=== PATIENT | female | born 1980 | race Caucasian/White ===

== ENCOUNTER → 2019-11-05 16:30 | Outpatient (BNVA) | payer OTHER, SELFPAY | PROVIDERS: Family Provider Nurse Practitioner Family; PCP Nurse Practitioner Family; Visit Provider Nurse Practitioner Family | DX: I10 Essential (primary) hypertension (principal); E55.9 Vitamin D deficiency, unspecified; E53.8 Deficiency of other specified B group vitamins; M25.50 Pain in unspecified joint; E66.9 Obesity, unspecified; R53.83 Other fatigue; Z71.3 Dietary counseling and surveillance; Z68.32 Body mass index [BMI] 32.0-32.9, adult | CPT/HCPCS: 80053; 80061; 82306; 82607; 84443; 85025; 85651; 86140; 86431 ==

== ENCOUNTER → 2019-12-04 11:51 | Outpatient (BNVA) | payer OTHER, SELFPAY | PROVIDERS: Family Provider Nurse Practitioner Family; PCP Nurse Practitioner Family; Visit Provider Nurse Practitioner Family | DX: E66.9 Obesity, unspecified (principal); E66.09 Other obesity due to excess calories; Z68.31 Body mass index [BMI] 31.0-31.9, adult; Z71.3 Dietary counseling and surveillance; G47.00 Insomnia, unspecified; R73.09 Other abnormal glucose | CPT/HCPCS: 80053; 83036 ==

== ENCOUNTER → 2020-03-13 11:41 | Outpatient (BNVA) | payer OTHER, SELFPAY | PROVIDERS: Family Provider Nurse Practitioner Family; PCP Nurse Practitioner Family; Visit Provider Nurse Practitioner Family | DX: E66.9 Obesity, unspecified (principal); I10 Essential (primary) hypertension; Z71.3 Dietary counseling and surveillance; Z68.28 Body mass index [BMI] 28.0-28.9, adult | CPT/HCPCS: 80053 ==

== ENCOUNTER → 2020-10-16 11:56 | Outpatient (BNVA) | payer OTHER, SELFPAY | PROVIDERS: Family Provider Nurse Practitioner Family; PCP Nurse Practitioner Family; Visit Provider Nurse Practitioner Family | DX: R60.9 Edema, unspecified (principal); E66.9 Obesity, unspecified; I10 Essential (primary) hypertension | CPT/HCPCS: 80053; 83880; 85025 ==

== ENCOUNTER → 2020-12-22 15:13 | Outpatient (BNVA) | payer OTHER, SELFPAY | PROVIDERS: Family Provider Nurse Practitioner Family; PCP Nurse Practitioner Family; Visit Provider Nurse Practitioner Family | DX: R60.9 Edema, unspecified (principal) | CPT/HCPCS: 80048 ==

== ENCOUNTER → 2021-01-12 16:21 | Outpatient (BNVA) | payer OTHER, SELFPAY | PROVIDERS: Family Provider Nurse Practitioner Family; PCP Nurse Practitioner Family; Visit Provider Nurse Practitioner Family | DX: M25.511 Pain in right shoulder (principal); G43.009 Migraine without aura, not intractable, without status migrainosus | CPT/HCPCS: 73030 ==

== ENCOUNTER → 2021-08-10 16:24 | Outpatient (BNVA) | payer OTHER, SELFPAY | PROVIDERS: Family Provider Nurse Practitioner Family; PCP Nurse Practitioner Family; Visit Provider Nurse Practitioner Family | DX: I10 Essential (primary) hypertension (principal); E55.9 Vitamin D deficiency, unspecified; E53.8 Deficiency of other specified B group vitamins | CPT/HCPCS: 80053; 80061; 82306; 82607; 83036; 83735; 84443; 85025 ==

== ENCOUNTER → 2022-02-21 14:53 | Outpatient (BNVA) | payer OTHER, SELFPAY | PROVIDERS: Family Provider Nurse Practitioner Family; PCP Nurse Practitioner Family; Visit Provider Nurse Practitioner Family | DX: Z20.822 Contact with and (suspected) exposure to COVID-19 (principal); J02.9 Acute pharyngitis, unspecified; J32.9 Chronic sinusitis, unspecified | CPT/HCPCS: 87071; 87635; 87880 ==

== ENCOUNTER → 2022-03-16 16:45 | Outpatient (BNVA) | payer OTHER, SELFPAY | PROVIDERS: Family Provider Nurse Practitioner Family; PCP Nurse Practitioner Family; Visit Provider Nurse Practitioner Family | DX: G43.009 Migraine without aura, not intractable, without status migrainosus (principal); E53.8 Deficiency of other specified B group vitamins; E55.9 Vitamin D deficiency, unspecified; R73.9 Hyperglycemia, unspecified; I10 Essential (primary) hypertension; J02.9 Acute pharyngitis, unspecified | CPT/HCPCS: 80053; 80061; 82306; 82607; 83036; 83735; 84443; 85025; 87070 ==

== ENCOUNTER → 2022-05-02 15:36 | Outpatient (BNVA) | payer OTHER, SELFPAY | PROVIDERS: Family Provider Nurse Practitioner Family; PCP Nurse Practitioner Family; Visit Provider Nurse Practitioner Family | DX: R05.9 Cough, unspecified (principal); R30.0 Dysuria; R53.83 Other fatigue | CPT/HCPCS: 81000; 87400; 87426 ==

== ENCOUNTER → 2022-08-24 17:05 | Outpatient (BNVA) | payer OTHER, SELFPAY | PROVIDERS: Family Provider Nurse Practitioner Family; PCP Nurse Practitioner Family; Visit Provider Nurse Practitioner Family | DX: I10 Essential (primary) hypertension (principal); E55.9 Vitamin D deficiency, unspecified; E53.8 Deficiency of other specified B group vitamins; R73.9 Hyperglycemia, unspecified | CPT/HCPCS: 80053; 80061; 81000; 82306; 82607; 83036; 84443; 85025 ==

== ENCOUNTER → 2023-02-28 17:01 | Outpatient (BNVA) | payer OTHER, SELFPAY | PROVIDERS: PCP Nurse Practitioner Family; Visit Provider Nurse Practitioner Family | DX: G43.009 Migraine without aura, not intractable, without status migrainosus (principal); E53.8 Deficiency of other specified B group vitamins; I10 Essential (primary) hypertension; R73.9 Hyperglycemia, unspecified; E55.9 Vitamin D deficiency, unspecified | CPT/HCPCS: 80053; 80061; 82306; 82607; 83036; 84443; 85025 ==

== ENCOUNTER → 2023-08-25 16:37 | Outpatient (BNVA) | payer OTHER, SELFPAY | PROVIDERS: PCP Nurse Practitioner Family; Visit Provider Nurse Practitioner Family | DX: M25.552 Pain in left hip (principal) | CPT/HCPCS: 73502 ==

== ENCOUNTER → 2023-09-22 11:31 | Outpatient (BNVA) | payer OTHER, SELFPAY | PROVIDERS: PCP Nurse Practitioner Family; Visit Provider Nurse Practitioner Family | DX: I10 Essential (primary) hypertension (principal); E53.8 Deficiency of other specified B group vitamins; E55.9 Vitamin D deficiency, unspecified; R73.9 Hyperglycemia, unspecified | CPT/HCPCS: 80053; 80061; 82306; 82607; 83036; 84443; 85025 ==

== ENCOUNTER 2023-11-14 07:29 | Outpatient (CLI) | payer OTHER, SELFPAY ==
[2022-10-12 13:38] VITALS: BMI 23.6
[2022-10-13] VITALS (12 sets, daily range): BP systolic 98–115; BP diastolic 54–82; PULSE 54–97; RESP 10–18; TEMP 36.4–36.8; O2SAT 98–100
[2022-10-13] MEDS: sodium chloride 0.9% 1,000 ML 30 ML IV (08:05)
--- NOTE | 2022-10-13 08:09 | W.PM.OPSUD ---
Surgery/Procedure H&P Update DATE OF PROCEDURE: October 13, 2022 DATE H&P PERFORMED: 09/27/22 H&P UPDATE INFORMATION: I have reviewed H&P completed within last 30 days, I have examined patient prior to procedure and No changes to prior documentation PLANNED PROCEDURE: Operation Date: 10/13/22 09:05 Proposed Procedures p lap brooke [id number], K80.20(Not Applicable) - Florian Leon DO
[2022-10-13] MEDS: scopolamine 1.5 Patch 1 PATCH TRANSDERMA (08:11)
[2022-10-13] MEDS: vancomycin 1,500 MG/300 ML PIGGYBACK 200 MG IV (08:12)
[2022-10-13] MEDS: lidocaine-epi 2% 20 mL INJ INJECTION (08:46)
--- NOTE | 2022-10-13 09:13 | P.OP_ITS ---
Operative Report Date of procedure: October 13, 2022 Pre-op diagnosis: Symptomatic cholelithiasis Post-op diagnosis: same Procedure done: Laparoscopic cholecystectomy Specimens removed/disposition: Gallbladder Surgeon: Dr. Florian Leon DO Anesthesia: General Estimated blood loss (mL): 5 Complications: None apparent Brief History: This very pleasant 42-year-old female who was diagnosed with symptomatic cholelithiasis. Laparoscopic cholecystectomy was indicated. The risk and benefits were explained and documented. Procedure: Patient was wheeled into the operative room and placed on the OR table in a supine position. Abdomen was inspected prepped and draped in usual sterile fashion. Time-out was performed and all present were in agreement. A 15 blade scalp was used to make a stab incision in the left upper quadrant and intra- abdominal insufflation was achieved using a Veress needle. After localizing the tissue incisions were made and a 5 millimeter trocar was placed into the umbilicus as well as 2 in the right upper quadrant. A 12 millimeter trocar was placed in the epigastrium. Gallbladder was grasped and elevated. The triangle of Calot was carefully dissected using blunt dissection and electrocautery until the triangle of Calot clearly identified. The cystic duct was clipped proximally and double clipped distally. The duct was then ligated proximally. The cystic artery was doubly clipped and ligated. The gallbladder was then removed from the liver bed using electrocautery. The gallbladder was removed from the abdomen using an Endo-Catch bag through the epigastric incision. The liver bed was inspected and no bleeding was seen. The abdomen was irrigated and suctioned. All ports removed. Skin was washed and dried. Incisions were closed with 3-0 and 4-O Vicryl in a subcuticular interrupted fashion. Skin glue was applied. Patient tolerated the procedure well.
[2022-10-13] MEDS: fentaNYL 50 mcg/mL INJ 2mL IVP (09:18)
[2022-10-13] MEDS: diphenhydrAMINE 50 mg/mL SDV 1mL 12.5 MG IVP (09:40)
--- NOTE | 2022-10-13 09:40 | PC.NURSE ---
Okay to give 12.5mg Benadryl for itching per Dr Posey. Administered medication, will continue to monitor.
[2022-10-13] MEDS: HYDROcodone-acetaminophen 5-325 mg Tablet 1 TAB PO (10:11)
--- NOTE | 2022-10-13 10:19 | P.ANESASSM_ITS ---
Pre-Anesthetic Assessment Height/Weight: Height 1.65 m Weight 64.41 kg Temp Pulse Resp BP Pulse Ox O2 Del Method O2 Flow Rate 97.9 F 54 L 16 115/54 100 Room Air 6 10/13/22 09:50 10/13/22 09:50 10/13/22 09:50 10/13/22 09:50 10/13/22 09:50 10/13/22 09:50 10/13/22 09:14 Operation Date: 10/13/22 09:05 Proposed Procedures p lap brooke [id number], K80.20(Not Applicable) - DO Paola Campos anesthetic complications: none Was Beta Marci taken within 24 hours: N/A Was Clonidine taken within 24 hours: N/A Last intake: Intake Last Liquid Date 10/12/22 Last Liquid Time 20:00 Last Solid Date 10/11/22 Last Solid Time 19:00 Social No alcohol and No tobacco Exam alert, oriented x 3, clear to auscultation bilaterally and regular rate & rhythm Airway Submandibular: within normal limits Cervical ROM: within normal limits Mallampati: Class II Dentition: full CV/HEM Hypertension Neuropsych Anxiety, Depression and Headache Anesthetic Plan ASA status: 2 Anesthesia: General Medications/Allergies Home Medications Medication Instructions Recorded Confirmed Last Taken Type bupropion HCl 300 mg 24 hr tablet, 300 mg PO QAM #90 tabs 03/16/22 10/13/22 10/13/22 Rx extended release ondansetron HCl 4 mg tablet 4 mg PO Q6H PRN nausea and 03/16/22 10/13/22 Unknown Rx vomiting #30 tabs rizatriptan 10 mg tablet See Rx Instructions .Route 03/16/22 10/13/22 Unknown Rx .COMPLEX #10 ea syringe with needle 3 mL 25 gauge #1 ea 09/16/22 09/27/22 Unknown Rx x 1 (BD Luer-Dax Syringe) cyanocobalamin (vitamin B-12) 100 mcg IM .QMONTH 10/13/22 10/13/22 Unknown History 1,000 mcg/mL injection solution docusate sodium 100 mg capsule 100 mg PO BID #14 caps 10/13/22 Unknown Rx (DOK) furosemide 40 mg tablet 40 mg PO DAILY 10/13/22 10/13/22 10/11/22 History hydrocodone 5 mg-acetaminophen 325 1 tab PO Q6H PRN pain #20 tabs 10/13/22 Unknown Rx mg tablet topiramate 25 mg tablet 25 mg PO BID 10/13/22 10/13/22 10/13/22 History trazodone 100 mg tablet 100 mg PO DAILY 10/13/22 10/13/22 10/12/22 History Allergies Allergy/AdvReac Type Severity Reaction Status Date / Time Penicillins Allergy ALGY-Hives Verified 09/27/22 09:16 Sulfa (Sulfonamide Allergy ADR/ALGY-Pa Verified 09/27/22 09:16 Antibiotics) lpitations Current Medications Generic Name Dose Route Start Last Admin Trade Name Freq PRN Reason Stop Dose Admin Diphenhydramine HCl 12.5 mg 10/13/22 07:41 10/13/22 09:40 Diphenhydramine 50 Mg/Ml Sdv 1ml IVP 12.5 mg ONCE PRN Administration PONV Fentanyl 50 mcg 10/13/22 07:41 10/13/22 09:18 Fentanyl 50 Mcg/Ml Inj 2ml IVP 10/14/22 07:41 50 mcg Q5M PRN Administration Pain level 1-5 PACU Phase I Sodium Chloride 1,000 mls @ 30 mls/hr 10/13/22 07:45 10/13/22 08:05 Sodium Chloride 0.9% IV 10/14/22 07:44 30 mls/hr .Q24H JAVIER Administration PFSH Anesthesia Medical History Hypertension Vitamin B 12 deficiency Vitamin D deficiency Surgical History Hx of hysterectomy (~2017) Hx of tubal ligation Family History Father Diabetes Stroke Mother Hypertension Denies family history of Clotting disorder Bleeding disorder Family history of premature coronary artery disease Social History Smoking and tobacco status: former smoker (quit 2 years ago) Quit status (tobacco): has quit using tobacco Year quit tobacco: 2019 Second hand smoke exposure: Yes Alcohol intake: never Substance/Drug Use: never Lives independently: Yes Current occupational status: employed Current occupation: [employer] Current gender identity: Female Data Anesthesia Cardiac Studies: No Data to Display
[2022-10-13] MEDS: ondansetron 2 mg/ML SDV 2 mL 4 MG IVP (10:30)
--- NOTE | 2022-10-13 16:14 | ANE.PACU2 ---
Inpatient post-anesthesia follow up: Airway intact: Yes Vital signs: Temperature 97.9 F Pulse Rate 54 Respiratory Rate 18 Blood Pressure 111/82 Pulse Oximetry 99 Oxygen Delivery Me thod Room Air Oxygen Flow Rate 6 Fraction of Inspir ed Oxygen Hydration adequate: Yes Nausea and vomiting: No Pain level: 2 Mental status: Baseline
[2023-11-14 09:00] LABS: 25 Hydroxy Vitamin D 22 ng/mL (30-100); Alanine Aminotransferase 19 U/L (0-33); Alkaline Phosphatase 50 U/L (35-105); Anion Gap 10.9 (5-19); Aspartate Amino Transferase 12 U/L (0-32); Blood Urea Nitrogen 11 mg/dL (6-20); Carbon Dioxide 24 mmol/L (22-29); Chloride 107 mmol/L (98-107); Chol HDL Ratio 4.07 mg/dL (0.0-4.40); Cholesterol 187 mg/dL (0-200); Globulin 2.6 g/dL (1.3-4.6); Glomerular Filtration Rate 54.5 mL/min (90-130); Glucose 77 mg/dL (65-115); HDL Cholesterol 46 mg/dL (60-100); LDL Cholesterol Calculated 128 mg/dL (50-129); LDL HDL Ratio 2.78 RATIO (0.00-3.22); Osmolality Calculated 284 mOsm/kg (285-295); Potassium 3.9 mmol/L (3.5-5.1); Sodium 138 mmol/L (136-145); Thyroid Stimulating Hormone 1.02 uIU/mL (0.27-4.20); Total Bilirubin 0.4 mg/dL (0.15-1.2); Total Protein 6.6 g/dL (6.6-8.7); Triglycerides 67 mg/dL (0-150); Vitamin B12 510 pg/mL (232-1245)
== END 2023-11-14 07:30 | disposition home or self-care (01) ==
LOC: LAB 07:29
PROVIDERS: PCP Nurse Practitioner Family; Visit Provider Surgery
PROC: 0FT44ZZ Resection of Gallbladder, Percutaneous Endoscopic Approach (ICD-10-PCS; CPT 47562; principal; 2022-10-13 08:55)
DX: K80.10 Calculus of gallbladder with chronic cholecystitis without obstruction (principal); F41.9 Anxiety disorder, unspecified; F32.A Depression, unspecified; I10 Essential (primary) hypertension; Z87.891 Personal history of nicotine dependence; E55.9 Vitamin D deficiency, unspecified; E53.8 Deficiency of other specified B group vitamins
CPT/HCPCS: 47562; 36415; 80053; 80061; 82306; 82607; 84443; 88304; J1100; J1200; J2405; J2704; J2710; J3010; J3370; J3490; J7030

== ENCOUNTER 2023-11-14 09:00 | Outpatient (CLI) | payer OTHER, SELFPAY | END 2023-11-14 09:01 | disposition home or self-care (01) | LOC: LAB 12-21 09:35 | PROVIDERS: PCP Nurse Practitioner Family; Visit Provider Nurse Practitioner Family | DX: E53.8 Deficiency of other specified B group vitamins (principal); I10 Essential (primary) hypertension; E55.9 Vitamin D deficiency, unspecified | CPT/HCPCS: 36415; 80053; 80061; 82306; 82607; 84443 ==

== ENCOUNTER → 2023-11-21 15:42 | Outpatient (BNVA) | payer OTHER, SELFPAY | PROVIDERS: PCP Nurse Practitioner Family; Visit Provider Nurse Practitioner Family | DX: R05.9 Cough, unspecified (principal) | CPT/HCPCS: 87071; 87400; 87426; 87880 ==

== ENCOUNTER → 2024-07-05 08:55 | Outpatient (BNVA) | payer OTHER, SELFPAY | PROVIDERS: PCP Nurse Practitioner Family; Visit Provider Nurse Practitioner Family | DX: I10 Essential (primary) hypertension (principal) | CPT/HCPCS: 80053; 80061; 82306; 82607; 85025 ==

== ENCOUNTER → 2025-02-12 14:55 | Outpatient (BNVA) | payer MEDICAID, SELFPAY | PROVIDERS: PCP Nurse Practitioner Family; Visit Provider Nurse Practitioner Family | DX: I10 Essential (primary) hypertension (principal); R73.9 Hyperglycemia, unspecified | CPT/HCPCS: 80053; 80061; 82306; 82607; 83036; 84443; 85025 ==